=== PATIENT | male | born 1990 | race African-American/Black ===

== ENCOUNTER 2022-02-02 09:15 | Emergency (ER) | payer OTHER ==
[2022-02-02 09:46] VITALS: BP 147/102; PULSE 82; TEMP 98; BMI 29.8
[2022-02-02 10:05] LABS: HEMATOCRIT 52.2 % (35.4-49); HEMOGLOBIN 18.1 G/dL (11.7-16.9); MCH 30.6 pg (25.7-33.7); MCHC 34.7 g/dl (32.0-35.9); MEAN CELL VOLUME 88.2 fl (80-96); MEAN PLT VOLUME 9.2 fl (7.5-11.1); PLATELET COUNT 192.2 10^3/uL (134-434); RBC 5.92 10^6/uL (4.00-5.60); RDW 14.4 % (11.9-15.9)
[2022-02-02 10:30] LABS: BILIRUBIN,TOTAL 1.2 mg/dl (0.2-1); CALCIUM 9.4 mg/dl (8.5-10); TOT PROT 7.4 g/dl (6.4-8.2)
[2022-02-02] MEDS ORDERED: POTASSIUM CHLORIDE ORAL LIQUID 20 MEQ/15 ML PO ONE (10:44)
[2022-02-02] MEDS ORDERED: SODIUM CHLORIDE 0.9%/KCL 20 MEQ/1,000 ML INFUS.BAG IV SCH (10:45)
[2022-02-02] MEDS ORDERED: POTASSIUM CHLORIDE ORAL LIQUID 20 MEQ/15 ML ONE (10:59)
[2022-02-02 13:20] LABS: ANISOCYTOSIS FEW; PLATELET ESTIMATE ADEQUATE
== END 2022-02-02 13:23 | disposition home or self-care (01) ==
LOC: FER 09:15
PROC: 3E0337Z Introduction of Electrolytic and Water Balance Substance into Peripheral Vein, Percutaneous Approach (ICD-10-PCS; principal; 2022-02-02)
DX: M79.10 Myalgia, unspecified site (principal); E87.6 Hypokalemia; F10.99 Alcohol use, unspecified with unspecified alcohol-induced disorder
CPT/HCPCS: 36415; 80053; 85027; 93005; 99284-25

== ENCOUNTER 2022-02-07 08:21 | Emergency (ER) | payer OTHER ==
[2022-02-07 08:35] VITALS: BP 130/85; PULSE 93; TEMP 99.6; BMI 29.8
[2022-02-07] MEDS ORDERED: SODIUM CHLORIDE 1,000 ML IV STA (08:56)
[2022-02-07] MEDS ORDERED: ONDANSETRON *ODT* 4 MG TABLET SL ONE (08:57)
[2022-02-07] MEDS ORDERED: ONDANSETRON *ODT* 4 MG TABLET ONE (09:08)
[2022-02-07 09:34] LABS: HEMATOCRIT 54.2 % (35.4-49); HEMOGLOBIN 18.8 G/dL (11.7-16.9); MCH 30.7 pg (25.7-33.7); MCHC 34.6 g/dl (32.0-35.9); MEAN CELL VOLUME 88.7 fl (80-96); MEAN PLT VOLUME 9.4 fl (7.5-11.1); RBC 6.11 10^6/uL (4.00-5.60); RDW 14.8 % (11.9-15.9); WHITE BLOOD COUNT 6.3 10^3/uL (4.0-10.8)
[2022-02-07 09:43] LABS: ALBUMIN 3.9 g/dl (3.4-5.0); BILIRUBIN,TOTAL 1.9 mg/dl (0.2-1); CALCIUM 9.6 mg/dl (8.5-10); TOT PROT 7.5 g/dl (6.4-8.2)
== END 2022-02-07 11:02 | disposition home or self-care (01) ==
LOC: FER 08:21
PROC: 3E0337Z Introduction of Electrolytic and Water Balance Substance into Peripheral Vein, Percutaneous Approach (ICD-10-PCS; principal; 2022-02-07)
DX: A09 Infectious gastroenteritis and colitis, unspecified (principal)
CPT/HCPCS: 36415; 80053; 83690; 85025; 99284-25; Q0162

== ENCOUNTER 2022-07-09 10:14 | Emergency (ER) | payer OTHER ==
[2022-07-09 10:21] VITALS: BP 145/96; PULSE 95; RESP 18; TEMP 99.5; BMI 32.3
[2022-07-09] MEDS ORDERED: ACETAMINOPHEN 500 MG TABLET (FP) PO ONE (10:57)
[2022-07-09] MEDS ORDERED: guaiFENesin/D-METHORPHAN HB 10 ML UNIT-DOSE CUPS PO ONE (10:57)
[2022-07-09] MEDS ORDERED: guaiFENesin/D-METHORPHAN HB 10 ML UNIT-DOSE CUPS ONE (11:06)
[2022-07-09] MEDS ORDERED: ACETAMINOPHEN 500 MG TABLET (FP) ONE (11:06)
[2022-07-09] MEDS ORDERED: SODIUM CHLORIDE 1,000 ML IV STA (11:20)
== END 2022-07-09 12:40 | disposition home or self-care (01) ==
LOC: FER 10:14
PROC: 3E0337Z Introduction of Electrolytic and Water Balance Substance into Peripheral Vein, Percutaneous Approach (ICD-10-PCS; principal; 2022-07-09)
DX: J06.9 Acute upper respiratory infection, unspecified (principal); R05.9 Cough, unspecified; E86.0 Dehydration
CPT/HCPCS: 0241U-QW; 71046-TC-FY; 99284-25

== ENCOUNTER 2022-12-16 14:09 | Inpatient (IN) | payer OTHER ==
[2022-12-16] MEDS ORDERED: diazePAM CARPU-JECT 10 MG/2 ML DISP.SYRIN IVPUSH ONE ×3 (14:42→16:27)
[2022-12-16] MEDS ORDERED: SODIUM CHLORIDE 0.9% 500 ML INFUS.BAG IV ONE (14:42)
[2022-12-16] MEDS ORDERED: FAMOTIDINE 20 MG/50 ML IVPB 20 MG/50 ML MG IVPB ONE ×2 (14:57→15:06)
[2022-12-16] MEDS ORDERED: ONDANSETRON 4 MG/2 ML VIAL IVPUSH ONE (14:57)
[2022-12-16] MEDS ORDERED: ONDANSETRON 4 MG/2 ML VIAL ONE (15:06)
[2022-12-16] MEDS ORDERED: diazePAM CARPU-JECT 10 MG/2 ML DISP.SYRIN ONE ×3 (15:06→16:34)
[2022-12-16 15:30] LABS: BASO % 0.3 % (0-2.0); EOS % 0.1 % (0-4.5); HEMATOCRIT 50.8 % (35.4-49); HEMOGLOBIN 17.4 GM/dL (11.7-16.9); LYMPH % 6.8 % (8-40); MCH 28.3 pg (25.7-33.7); MCHC 34.3 g/dl (32.0-35.9); MEAN CELL VOLUME 82.5 fl (80-96); MEAN PLT VOLUME 10.1 fl (7.5-11.1); MONO % 9.9 % (3.8-10.2); NEUT % 82.9 % (42.8-82.8); PLATELET COUNT 100 10^3/uL (134-434); RBC 6.16 M/mm3 (4.00-5.60); RDW 13.6 % (11.9-15.9); WHITE BLOOD COUNT 11.3 K/mm3 (4.0-10.0)
[2022-12-16] MEDS ORDERED: DEXTROSE 5%-NORMAL SALINE 1,000 ML IV ONE (15:34)
[2022-12-16] MEDS ORDERED: THIAMINE HCL 200 MG/2 ML VIAL IVPB ONE (15:34)
[2022-12-16 15:56] LABS: ALBUMIN 3.4 g/dl (3.4-5.0); BLOOD UREA NITROGEN 39.6 mg/dL (7-18); CALCIUM 8.9 mg/dL (8.5-10.1); MAGNESIUM 2.6 mg/dL (1.8-2.4)
[2022-12-16 15:59] LABS: CREATININE 1.4 mg/dL (0.55-1.3)
[2022-12-16 16:01] LABS: BILIRUBIN,TOTAL 3.9 mg/dL (0.2-1); TOT PROT 7.5 g/dl (6.4-8.2)
[2022-12-16] MEDS ORDERED: THIAMINE HCL 200 MG/2 ML VIAL ONE (16:01)
[2022-12-16 16:04] LABS: VENOUS BASE EXCESS 3.6 mmol/L (-2-2); VENOUS O2 SATURATION 55.9 % (70-80); VENOUS PCO2 36.4 mmHg (38-52); VENOUS PH 7.485 (7.310-7.410)
[2022-12-16] MEDS ORDERED: LORazepam 1 MG TABLET PO PRN (16:49)
[2022-12-16 16:57] LABS: BILIRUBIN,DIRECT 1.2 mg/dL (0.0-0.2)
[2022-12-16] MEDS ORDERED: FOLIC ACID INJECTION - 1 MG, THIAMINE HCL 100 MG in SODIUM CHLORIDE 998.8 ML IVPB ONE (16:59)
[2022-12-16] MEDS ORDERED: LORazepam 1 MG TABLET PO ONE (17:04)
[2022-12-16] MEDS ORDERED: LORazepam 1 MG TABLET ONE (17:19)
[2022-12-16 18:56] LABS: INR 1.11 (0.83-1.09); PROTHROMBIN TIME (PATIENT) 12.9 SEC (9.7-13.0)
[2022-12-16 18:59] LABS: ACTIVATED PTT 30.7 SECONDS (25.2-36.5)
[2022-12-16] MEDS: HEPARIN NA (PORCINE) 5,000 UNITS/ML 1ML VIAL SQ SCH (21:31)
[2022-12-16] MEDS ORDERED: LACTATED RINGERS SOLUTION 1,000 ML/1,000 ML INFUS.BAG IV SCH (22:00)
[2022-12-16] MEDS: LORazepam 1 MG TABLET PO SCH (22:17)
[2022-12-17] MEDS: HEPARIN NA (PORCINE) 5,000 UNITS/ML 1ML VIAL SQ SCH ×3 (05:14→22:53)
[2022-12-17] MEDS: LORazepam 1 MG TABLET PO SCH ×4 (05:14→22:55)
[2022-12-17 07:43] LABS: BLOOD UREA NITROGEN 28.5 mg/dL (7-18)
[2022-12-17 07:44] LABS: ALBUMIN 2.9 g/dl (3.4-5.0); CALCIUM 8.2 mg/dL (8.5-10.1)
[2022-12-17 07:47] LABS: CREATININE 1.3 mg/dL (0.55-1.3)
[2022-12-17 07:48] LABS: TOT PROT 6.2 g/dl (6.4-8.2)
[2022-12-17 08:23] LABS: BASO % 0.1 % (0-2.0); HEMATOCRIT 44.6 % (35.4-49); HEMOGLOBIN 15.4 GM/dL (11.7-16.9); LYMPH % 14.1 % (8-40); MCH 29.4 pg (25.7-33.7); MCHC 34.5 g/dl (32.0-35.9); MEAN CELL VOLUME 85.2 fl (80-96); MEAN PLT VOLUME 10.9 fl (7.5-11.1); MONO % 10.6 % (3.8-10.2); NEUT % 75.2 % (42.8-82.8); PLATELET COUNT 82 10^3/uL (134-434); RBC 5.24 M/mm3 (4.00-5.60); RDW 13.4 % (11.9-15.9); WHITE BLOOD COUNT 8.7 K/mm3 (4.0-10.0)
[2022-12-17] MEDS ORDERED: THIAMINE HCL 100 MG TABLET (FP) PO SCH (10:00)
[2022-12-17] MEDS ORDERED: POTASSIUM CHLORIDE TABS 20 MEQ TABLET.ER (FP) PO ONE (10:00)
[2022-12-17 11:29] LABS: MAGNESIUM 2.8 mg/dL (1.8-2.4)
[2022-12-17 11:33] LABS: PHOSPHOROUS 1.9 mg/dL (2.5-4.9)
[2022-12-17] MEDS ORDERED: LORazepam 1 MG TABLET PO PRN (12:50)
[2022-12-17] MEDS: LACTATED RINGERS SOLUTION 1,000 ML/1,000 ML INFUS.BAG IV SCH (14:00)
[2022-12-17] MEDS ORDERED: NAPH,MB-DB/K PH,MBDB POWDER PACKET PO ONE (14:57)
[2022-12-17] MEDS: MULTIVITAMINS (DAILY MVI) TABLET (FP) PO SCH (15:47)
[2022-12-17] MEDS: FOLIC ACID 1 MG TABLET (FP) PO SCH (15:47)
[2022-12-17] MEDS: PANTOPRAZOLE 20 MG TABLET PO SCH (16:29)
[2022-12-17 17:54] LABS: CALCIUM 8.1 mg/dL (8.5-10.1)
[2022-12-17 17:55] LABS: BLOOD UREA NITROGEN 22.5 mg/dL (7-18)
[2022-12-17 17:58] LABS: CREATININE 1.3 mg/dL (0.55-1.3)
[2022-12-17 18:32] LABS: PHENCYCLIDINE,URINE NEGATIVE (NEGATIVE)
[2022-12-17 18:33] LABS: COCAINE, UR NEGATIVE (NEGATIVE); METHADONE, UR NEGATIVE (NEGATIVE); OPIATES, URI NEGATIVE (NEGATIVE)
[2022-12-17 18:34] LABS: URINE AMPHETAMINES NEGATIVE (NEGATIVE); URINE BARBITURATES NEGATIVE (NEGATIVE); URINE BENZODIAZEPINES POSITIVE (NEGATIVE)
[2022-12-18] MEDS: LORazepam 1 MG TABLET PO SCH ×2 (04:39→11:22)
[2022-12-18] MEDS ORDERED: LORazepam 1 MG TABLET PO SCH (05:00)
[2022-12-18] MEDS: HEPARIN NA (PORCINE) 5,000 UNITS/ML 1ML VIAL SQ SCH ×3 (05:07→22:17)
[2022-12-18] MEDS: LACTATED RINGERS SOLUTION 1,000 ML/1,000 ML INFUS.BAG IV SCH (05:15)
[2022-12-18 08:16] LABS: HEMATOCRIT 41.7 % (35.4-49); HEMOGLOBIN 14.4 GM/dL (11.7-16.9); MCH 29.4 pg (25.7-33.7); MCHC 34.5 g/dl (32.0-35.9); MEAN CELL VOLUME 85.3 fl (80-96); MEAN PLT VOLUME 11.2 fl (7.5-11.1); PLATELET COUNT 100 10^3/uL (134-434); RBC 4.89 M/mm3 (4.00-5.60); RDW 13.6 % (11.9-15.9)
[2022-12-18 08:39] LABS: ALBUMIN 2.7 g/dl (3.4-5.0); BLOOD UREA NITROGEN 16.6 mg/dL (7-18); CALCIUM 8.4 mg/dL (8.5-10.1); MAGNESIUM 2.7 mg/dL (1.8-2.4)
[2022-12-18 08:42] LABS: PHOSPHOROUS 2.3 mg/dL (2.5-4.9)
[2022-12-18 08:43] LABS: BILIRUBIN,TOTAL 2.8 mg/dL (0.2-1); TOT PROT 6.2 g/dl (6.4-8.2)
[2022-12-18] MEDS ORDERED: NAPH,MB-DB/K PH,MBDB POWDER PACKET PO ONE (09:45)
[2022-12-18] MEDS: THIAMINE HCL 100 MG TABLET (FP) PO SCH (10:11)
[2022-12-18] MEDS: FOLIC ACID 1 MG TABLET (FP) PO SCH (10:11)
[2022-12-18] MEDS: MULTIVITAMINS (DAILY MVI) TABLET (FP) PO SCH (10:11)
[2022-12-18] MEDS: PANTOPRAZOLE 20 MG TABLET PO SCH (10:15)
[2022-12-18 10:55] VITALS: RESP 18
[2022-12-19] MEDS ORDERED: LORazepam 0.5 MG TABLET PO PRN ×2
[2022-12-19] MEDS ORDERED: LORazepam 0.5 MG TABLET PO SCH ×2 (05:00)
[2022-12-19] MEDS: HEPARIN NA (PORCINE) 5,000 UNITS/ML 1ML VIAL SQ SCH (06:27)
[2022-12-19 08:58] VITALS: BP 164/101; PULSE 115; TEMP 98.7
[2022-12-19] MEDS: MULTIVITAMINS (DAILY MVI) TABLET (FP) PO SCH (09:00)
[2022-12-19] MEDS: PANTOPRAZOLE 20 MG TABLET PO SCH (09:00)
[2022-12-19] MEDS: FOLIC ACID 1 MG TABLET (FP) PO SCH (09:00)
[2022-12-19] MEDS: THIAMINE HCL 100 MG TABLET (FP) PO SCH (09:00)
[2022-12-19 13:42] VITALS: BMI 30.9
[2022-12-20] MEDS ORDERED: LORazepam 0.5 MG TABLET PO ONE ×2 (05:00)
== END 2022-12-19 10:00 | disposition home or self-care (01) | DRG 775 ==
LOC: JER 14:09 → JERBED 16:45 → J4W 19:25 → J6S 12-17 12:48
PROVIDERS: ADMIT Internal Medicine; ATTEND Internal Medicine
PROC: HZ2ZZZZ Detoxification Services for Substance Abuse Treatment (ICD-10-PCS; principal; 2022-12-16)
DX: F10.239 Alcohol dependence with withdrawal, unspecified (principal); K70.10 Alcoholic hepatitis without ascites; R19.7 Diarrhea, unspecified; K76.0 Fatty (change of) liver, not elsewhere classified; F17.210 Nicotine dependence, cigarettes, uncomplicated; E87.1 Hypo-osmolality and hyponatremia; F41.8 Other specified anxiety disorders
CPT/HCPCS: 0241U-QW; 36415; 71045-TC-FY; 74177-TC; 76705-TC; 80048; 80053; 80307; 82172; 82248; 82803; 82977; 83010; 83036; 83690; 83735; 83883; 83930; 84100; 84295; 84460; 84484; 85025; 85027; 85610; 85730; 86704; 86705; 86708; 87340; 87517; 87522; 93005; 93010; 97116-GP; 97162-GP; 99285-25; J1644; Q9967

== ENCOUNTER 2023-05-02 14:54 | Inpatient (IN) | payer OTHER ==
[2023-05-02] MEDS ORDERED: LACTATED RINGERS SOLUTION 1000 ML INFUS.BAG IV ONE ×2 (15:50→16:30)
[2023-05-02] MEDS ORDERED: diazePAM CARPU-JECT 10 MG/2 ML DISP.SYRIN IVPUSH ONE ×2 (16:24→17:54)
[2023-05-02] MEDS ORDERED: chlordiazePOXIDE HCL 25 MG CAPSULE PO ONE (16:24)
[2023-05-02] MEDS ORDERED: diazePAM CARPU-JECT 10 MG/2 ML DISP.SYRIN ONE ×2 (16:40→18:14)
[2023-05-02] MEDS ORDERED: chlordiazePOXIDE HCL 25 MG CAPSULE ONE (16:41)
[2023-05-02 16:45] LABS: BASO % 0.8 % (0-2.0); EOS % 0.2 % (0-4.5); HEMATOCRIT 48.9 % (35.4-49); HEMOGLOBIN 16.8 GM/dL (11.7-16.9); LYMPH % 27.7 % (8-40); MCHC 34.3 g/dl (32.0-35.9); MEAN CELL VOLUME 87.4 fl (80-96); MEAN PLT VOLUME 9.8 fl (7.5-11.1); MONO % 8.8 % (3.8-10.2); NEUT % 62.5 % (42.8-82.8); PLATELET COUNT 142 10^3/uL (134-434); RDW 13.4 % (11.9-15.9); WHITE BLOOD COUNT 6.4 K/mm3 (4.0-10.0)
[2023-05-02 17:12] LABS: EPI CELLS 6 /uL (0-25.1); HYALINE CASTS 0 /uL (0-3.1); PH,URINE 6.5 (5.0-8.0); URINE APPEARANCE CLEAR; URINE BACTERIA 15 /uL (0-1359); URINE BILIRUBIN NEGATIVE (NEGATIVE); URINE COLOR YELLOW; URINE GLUCOSE (UA) NEGATIVE (NEGATIVE); URINE KETONE NEGATIVE (NEGATIVE); URINE LEUK ESTERASE NEGATIVE (NEGATIVE); URINE NITRITE NEGATIVE (NEGATIVE); URINE PROTEIN 1+ (NEGATIVE); URINE RBC 10 /uL (0-23.9); URINE WBC 9 /uL (0-25.8)
[2023-05-02 17:15] LABS: METHADONE, UR NEGATIVE (NEGATIVE); OPIATES, URI NEGATIVE (NEGATIVE); PHENCYCLIDINE,URINE NEGATIVE (NEGATIVE); URINE BARBITURATES NEGATIVE (NEGATIVE); URINE BENZODIAZEPINES NEGATIVE (NEGATIVE)
[2023-05-02 17:17] LABS: COCAINE, UR NEGATIVE (NEGATIVE); URINE AMPHETAMINES NEGATIVE (NEGATIVE)
[2023-05-02 17:25] LABS: CHLORIDE 85 mmol/L (98-107); SODIUM 132 mmol/L (136-145)
[2023-05-02 17:27] LABS: CALCIUM 9.1 mg/dL (8.5-10.1); GLUCOSE,RANDOM 192 mg/dL (74-106)
[2023-05-02 17:28] LABS: ALBUMIN 3.5 g/dl (3.4-5.0); CO2 31 mmol/L (21-32)
[2023-05-02 17:30] LABS: SGPT/ALT 254 U/L (13-61)
[2023-05-02 17:31] LABS: CREATININE 0.9 mg/dL (0.55-1.3); PHOSPHOROUS 2.3 mg/dL (2.5-4.9); SGOT/AST 605 U/L (15-37)
[2023-05-02 17:32] LABS: BILIRUBIN,TOTAL 2.2 mg/dL (0.2-1); TOT PROT 7.6 g/dl (6.4-8.2)
[2023-05-02 17:33] LABS: ALK PHOS 192 U/L (45-117)
[2023-05-02 17:35] LABS: ANION GAP 16 MMOL/L (8-16); POTASSIUM 2.9 mmol/L (3.5-5.1)
[2023-05-02] MEDS ORDERED: POTASSIUM CHLORIDE TABS 20 MEQ TABLET.ER (FP) PO ONE ×2 (17:41→17:55)
[2023-05-02] MEDS ORDERED: NAPH,MB-DB/K PH,MBDB POWDER PACKET PO ONE (17:42)
[2023-05-02] MEDS ORDERED: CYANOCOBALAMIN (VITAMIN B-12) 1000 MCG/1 ML VIAL IM ONE (17:55)
[2023-05-02] MEDS ORDERED: KCL 10 MEQ IVPB 10 MEQ/100 ML INFUS.BAG IVPB ONE ×3 (17:55→21:05)
[2023-05-02] MEDS ORDERED: NAPH,MB-DB/K PH,MBDB POWDER PACKET ONE (17:55)
[2023-05-02] MEDS ORDERED: THIAMINE HCL 200 MG/2 ML VIAL IM ONE (17:56)
[2023-05-02] MEDS ORDERED: FOLIC ACID 5 MG/1 ML SQ ONE (17:56)
[2023-05-02] MEDS: KCL 10 MEQ IVPB 10 MEQ/100 ML INFUS.BAG IVPB SCH ×3 (18:09→21:07)
[2023-05-02] MEDS ORDERED: POTASSIUM CHLORIDE ORAL LIQUID 20 MEQ/15 ML PO ONE (19:14)
[2023-05-02] MEDS ORDERED: SODIUM CHLORIDE 1,000 ML IV STA (19:15)
[2023-05-02] MEDS ORDERED: LORazepam 1 MG TABLET PO PRN (19:29)
[2023-05-02] MEDS ORDERED: THIAMINE HCL 200 MG/2 ML VIAL ONE (19:41)
[2023-05-02] MEDS ORDERED: POTASSIUM CHLORIDE ORAL LIQUID 20 MEQ/15 ML ONE (19:41)
[2023-05-02] MEDS ORDERED: FOLIC ACID 1 MG TABLET (FP) ONE (19:41)
[2023-05-02] MEDS: FOLIC ACID 1 MG TABLET (FP) PO SCH (19:57)
[2023-05-02] MEDS: THIAMINE HCL 200 MG/2 ML VIAL IVPB SCH (19:58)
[2023-05-02] MEDS ORDERED: LORazepam 1 MG TABLET PO ONE (21:22)
[2023-05-02] MEDS ORDERED: NICOTINE 21 MG/24 HOURS TOPICAL PATCH ONE (22:47)
[2023-05-02] MEDS ORDERED: LORazepam 0.5 MG TABLET ONE (22:47)
[2023-05-02] MEDS: LORazepam 1 MG TABLET PO SCH (22:55)
[2023-05-02] MEDS: NICOTINE 21 MG/24 HOURS TOPICAL PATCH TD SCH (22:55)
[2023-05-02] MEDS: SODIUM CHLORIDE 1,000 ML IV SCH (22:55)
[2023-05-03] MEDS ORDERED: LORazepam 2 MG/ML SDV VIAL IVPUSH ONE (00:51)
[2023-05-03] MEDS ORDERED: LORazepam 1 MG TABLET ONE ×3 (06:11→17:19)
[2023-05-03] MEDS: LORazepam 1 MG TABLET PO SCH ×4 (06:14→22:32)
[2023-05-03 07:02] LABS: HEMOGLOBIN 14.9 GM/dL (11.7-16.9); MCH 30.1 pg (25.7-33.7); MEAN CELL VOLUME 88.5 fl (80-96); MEAN PLT VOLUME 9.1 fl (7.5-11.1); PLATELET COUNT 96 10^3/uL (134-434); RBC 4.97 M/mm3 (4.00-5.60); RDW 13.3 % (11.9-15.9); WHITE BLOOD COUNT 4.8 K/mm3 (4.0-10.0)
[2023-05-03 07:12] LABS: CALCIUM 8.3 mg/dL (8.5-10.1)
[2023-05-03 07:13] LABS: MAGNESIUM 1.5 mg/dL (1.8-2.4)
[2023-05-03 07:14] LABS: BLOOD UREA NITROGEN 8.5 mg/dL (7-18)
[2023-05-03 07:17] LABS: CREATININE 0.9 mg/dL (0.55-1.3)
[2023-05-03 07:18] LABS: PHOSPHOROUS 2.2 mg/dL (2.5-4.9)
[2023-05-03 07:20] LABS: BILIRUBIN,TOTAL 4.1 mg/dL (0.2-1)
[2023-05-03 09:19] LABS: BILIRUBIN,DIRECT 1.4 mg/dL (0.0-0.2)
[2023-05-03 09:21] LABS: BILIRUBIN,DIRECT 2.6 mg/dL (0.0-0.2)
[2023-05-03] MEDS ORDERED: ENOXAPARIN NA (PORCINE) 40 MG/0.4 ML DISP.SYRIN SQ SCH (10:00)
[2023-05-03] MEDS ORDERED: ENOXAPARIN NA (PORCINE) 40 MG/0.4 ML DISP.SYRIN SQ ONE (10:27)
[2023-05-03] MEDS ORDERED: FOLIC ACID 1 MG TABLET (FP) ONE (12:33)
[2023-05-03] MEDS ORDERED: THIAMINE HCL 200 MG/2 ML VIAL ONE (12:33)
[2023-05-03] MEDS ORDERED: NICOTINE 21 MG/24 HOURS TOPICAL PATCH ONE (12:33)
[2023-05-03] MEDS: NICOTINE 21 MG/24 HOURS TOPICAL PATCH TD SCH (12:44)
[2023-05-03] MEDS: FOLIC ACID 1 MG TABLET (FP) PO SCH (12:44)
[2023-05-03] MEDS: THIAMINE HCL 200 MG/2 ML VIAL IVPB SCH (12:44)
[2023-05-03 12:49] LABS: POTASSIUM 3.2 mmol/L (3.5-5.1)
[2023-05-03 12:50] LABS: MAGNESIUM 1.7 mg/dL (1.8-2.4)
[2023-05-03] MEDS ORDERED: POTASSIUM CHLORIDE TABS 20 MEQ TABLET.ER (FP) PO ONE ×2 (16:55→17:18)
[2023-05-03] MEDS ORDERED: MAGNESIUM OXIDE 400 MG TABLET (FP) PO ONE (16:56)
[2023-05-03] MEDS ORDERED: MAGNESIUM OXIDE 400 MG TABLET (FP) ONE (17:18)
[2023-05-03] MEDS: SODIUM CHLORIDE 1,000 ML IV SCH (18:16)
[2023-05-04 01:51] VITALS: RESP 20
[2023-05-04 03:48] VITALS: BMI 30.4
[2023-05-04] MEDS ORDERED: LORazepam 1 MG TABLET PO SCH (05:00)
[2023-05-04 05:52] VITALS: BP 155/100; PULSE 95; TEMP 100
[2023-05-04 09:22] LABS: HEMATOCRIT 42.1 % (35.4-49); HEMOGLOBIN 14.1 GM/dL (11.7-16.9); MCHC 33.5 g/dl (32.0-35.9); MEAN CELL VOLUME 89.7 fl (80-96); PLATELET COUNT 100 10^3/uL (134-434); RBC 4.69 M/mm3 (4.00-5.60); RDW 13.4 % (11.9-15.9); WHITE BLOOD COUNT 4.9 K/mm3 (4.0-10.0)
[2023-05-04 09:48] LABS: ALBUMIN 2.8 g/dl (3.4-5.0)
[2023-05-04 09:52] LABS: BILIRUBIN,DIRECT 1.7 mg/dL (0.0-0.2)
[2023-05-04 09:53] LABS: BILIRUBIN,TOTAL 2.8 mg/dL (0.2-1)
[2023-05-04 09:54] LABS: TOT PROT 6.1 g/dl (6.4-8.2)
[2023-05-05] MEDS ORDERED: LORazepam 0.5 MG TABLET PO PRN
[2023-05-05] MEDS ORDERED: LORazepam 0.5 MG TABLET PO SCH (05:00)
[2023-05-06] MEDS ORDERED: LORazepam 0.5 MG TABLET PO ONE (05:00)
== END 2023-05-04 10:16 | disposition home or self-care (01) | DRG 775 ==
LOC: JER 14:54 → JERBED 19:49 → J4S 05-03 21:26
PROVIDERS: ADMIT Internal Medicine; ATTEND Internal Medicine
PROC: HZ2ZZZZ Detoxification Services for Substance Abuse Treatment (ICD-10-PCS; principal; 2023-05-02)
DX: F10.239 Alcohol dependence with withdrawal, unspecified (principal); E87.6 Hypokalemia; E80.6 Other disorders of bilirubin metabolism; F17.210 Nicotine dependence, cigarettes, uncomplicated; R00.0 Tachycardia, unspecified; R74.01 Elevation of levels of liver transaminase levels; E66.3 Overweight; Z68.30 Body mass index [BMI] 30.0-30.9, adult
CPT/HCPCS: 36415; 76705-TC; 80053; 80061; 80076; 80307; 81003; 82248; 82962; 83036; 83735; 84100; 84132; 85025; 85027; 87086; 93005; 93010; 99285-25